=== PATIENT | male | born 1950 | race Caucasian/White ===

== ENCOUNTER 2018-12-26 13:16 | Emergency (ER) | payer MEDICARE, OTHER ==
[~2018-12-26] VITALS: Ht 172.7 cm; Wt 102.3 kg
[~2018-12-26 13:16] MED LIST: ASPI-650; ATOR20TA17; OMEG1CAP9
[2018-12-26 14:11] VITALS: Ht 172.7 cm; Wt 102.3 kg
--- NOTE | 2018-12-26 18:00 | ERD ---
ER Documentation Chief Complaint Chief Complaint SENT BY FOR DOPPLER TO CHECK FOR BLOOD CLOT HPI The patient is of 68-year-old male, presenting to the ER from his orthopedist office to rule out for blood clot on the right lower extremity because of intermittent pain for the last couple days after he had Achilles tendon repair on November 10, 2018. He denies fever, chills, neck pain, chest pain, dyspnea, abdominal pain, vomiting, dysuria, diarrhea. He does not smoke, drinks socially Past medical history: History of prostatic cancer, dyslipidemia Past surgical history: Prostatectomy, cholecystectomy ROS All systems reviewed and are negative except as per history of present illness. Medications Home Meds Active Scripts Ibuprofen* (Motrin*) 600 Mg Tab, 600 MG PO Q6H PRN for PAIN AND OR ELEVATED TEMP, #20 TAB Prov:LATISHA TERRELL MD 12/26/18 Reported Medications Docosahexanoic Acid/Epa (Fish Oil 1,000 Mg Softgel) 1 Cap Capsule 10/14/10 Aspirin (Aspirin) 81 Mg Tablet 10/14/10 Atorvastatin (Lipitor) 20 Mg Tablet 10/14/10 Allergies Allergies: Coded Allergies: No Known Allergies (Verified Allergy, Unknown, 10/14/10) PMhx/Soc History of Surgery: Yes (ORAL SURGERY) Anesthesia Reaction: No Hx Neurological Disorder: No Hx Respiratory Disorders: No Hx Cardiac Disorders: Yes (SMALL MURMUR FROM ) Hx Psychiatric Problems: No Hx Miscellaneous Medical Probl: Yes (HIGH CHOLESTEROL) Hx Alcohol Use: Yes (OCCASIONAL) Hx Substance Use: No Hx Tobacco Use: Yes (2 YEARS AGO) Physical Exam Vitals Vital Signs Date Temp Pulse Resp B/P (MAP) Pulse Ox O2 O2 Flow FiO2 Time Delivery Rate 12/26/18 98.3 87 19 151/97 97 Room Air 18:34 (115) 12/26/18 98.3 88 14 161/77 98 Room Air 18:13 (105) 12/26/18 98.2 83 16 179/95 97 14:11 (123) Physical Exam Const: No acute distress. Head: Atraumatic. Eyes: Normal Conjunctiva. ENT: Normal External Ears, Nose and Mouth. Neck: Full range of motion. No meningismus. Resp: Clear to auscultation bilaterally. Cardio: Regular rate and rhythm. Abd: Soft, non distended, normal bowel sounds, non tender. Skin: No petechiae or rashes. Back: No midline or flank tenderness. Ext: No cyanosis, or edema. Neur: Awake and alert. No focal deficit Psych: Normal Mood and Affect. Procedures/MDM [place] [id number] Radiology Main Line: [phone] DIAGNOSTIC IMAGING REPORT Patient: BLAIR FISCHER : 1950 Age: 68 Sex: M MR #: [id number] DOS: 12/26/181807 Ordering MD: LATISHA TERRELL MD Location: E/R Room/Bed: PROCEDURE: US Lower extremity Venous. CLINICAL INDICATION: Right leg edema TECHNIQUE: Multiple sonographic images of the right lower extremity deep venous system was obtained utilizing grayscale, color-flow, compressive sonography and doppler imaging with augmentation. The images were reviewed on a PACS workstation. COMPARISON: None. FINDINGS: There is normal compressibility and flow within the right common femoral, femoral and popliteal veins. Visualized calf veins are patent. IMPRESSION: No sonographic evidence for deep venous thrombosis. RPTAT: BBGG Physician Albert Date Time Electronically viewed and signed by Physician Albert on 12/26/2018 15:47 ME/ CC: LATISHA TERRELL MD [id number] [facility] the patient is a 68-year-old male, presenting with acute right lower extremity pain, no evidence for DVT or cellulitis, is stable for outpatient follow-up The differential diagnoses considered include but are not limited to cellulitis, DVT, muscle spasm Departure Diagnosis: Primary Impression: Pain of right leg Condition: Good Comments The patient's blood pressure was elevated (>120/80) but appears stable without evidence of hypertension emergency or urgency. The patient was counseled about the risks of hypertension and urged to pursue outpatient monitoring and therapy within a week with their primary care physician. He was discharged with Motrin I discussed the findings with the patient. I advised the patient to follow-up with the primary physician in about 2-3 days, sooner if needed and return if any concern. Disclaimer: Inadvertent spelling and grammatical errors are likely due to EHR/dictation software use and do not reflect on the overall quality of patient care. Also, please note that the electronic time recorded on this note does not necessarily reflect the actual time of the patient encounter. LATISHA TERRELL MD Dec 26, 2018 18:00
[2018-12-26 18:34] VITALS: BP 151/97; PULSE 87; RESP 19
[2018-12-26] MEDS ORDERED: IBUP-1542 PO (18:55)
[2018-12-26] MEDS ORDERED: ATOR20TA38 PO (19:14)
== END 2018-12-26 19:24 | disposition home or self-care (01) ==
LOC: E/R 13:16
DX: M79.604 Pain in right leg (principal); Z79.82 Long term (current) use of aspirin; Z85.46 Personal history of malignant neoplasm of prostate; Z87.891 Personal history of nicotine dependence
CPT/HCPCS: 93971